=== PATIENT | male | born 1985 | race Hispanic/Latino ===

== ENCOUNTER 2019-07-31 22:19 | Inpatient (IN) | payer OTHER ==
[~2019-07-31] VITALS: Ht 190.5 cm; Wt 130.7 kg
[~2019-07-31 22:19] MED LIST: LIDOCAINE HCL 2% LOCAL INJ 5 ML SDV VIAL INJ ONE; PROPOFOL IV EMULSION 10 MG/ML 20 ML VIAL ONE
[2019-07-31] MEDS ORDERED: DILTIAZEM HCL 5 MG/ML 5 ML VIAL IV STA (22:56)
[2019-07-31] MEDS ORDERED: SODIUM CHLORIDE 0.9% 500ML 500 ML IV ONE (23:00)
[2019-07-31] MEDS ORDERED: ASPIRIN 81 MG CHEW TAB PO ONE (23:00)
[2019-07-31 23:10] LABS: BASOPHILS # (AUTO) 0.1 (0.0-0.1); BASOPHILS % 0.7 % (0.0-1.0); EOSINOPHILS # (AUTO) 0.2 (0.0-0.4); EOSINOPHILS % 1.3 % (0.0-6.0); HEMATOCRIT 49.9 % (38.2-49.6); HEMOGLOBIN 16.7 g/dL (14.0-18.0); LYMPHOCYTES # (AUTO) 4.2 (1.0-3.2); LYMPHOCYTES % 34.9 % (18.0-39.1); MEAN CORPUSCULAR HEMOGLOBIN 30.3 pg (28-32); MEAN CORPUSCULAR HGB CONC 33.5 g/dL (31-35); MEAN CORPUSCULAR VOLUME 90.4 fL (81-99); MONOCYTES # (AUTO) 0.8 (0.2-0.8); MONOCYTES % 6.5 % (4.4-11.3); NEUTROPHILS # (AUTO) 6.7 (2.1-6.9); NEUTROPHILS % 56.3 % (38.7-80.0); PLATELET COUNT 202 x10e3/uL (140-360); RED BLOOD COUNT 5.52 x10e6/uL (4.3-5.7); RED CELL DISTRIBUTION WIDTH 13.6 % (11.7-14.4)
[2019-07-31] MEDS ORDERED: SODIUM CHLORIDE 0.9% 100 ML ONE (23:12)
[2019-07-31] MEDS ORDERED: DILTIAZEM HCL IV 5MG/ML 25 ML VIAL ONE (23:13)
[2019-07-31] MEDS: DILTIAZEM HCL 100 ML IV SCH (23:20)
[2019-07-31 23:24] LABS: INR 1.06; PARTIAL THROMBOPLASTIN TIME 33.2 seconds (23.8-35.5); PROTHROMBIN TIME 14.3 seconds (11.9-14.5)
[2019-07-31] MEDS ORDERED: ONDANSETRON HCL INJ 2MG/ML 2ML 2 MG/ML VIAL IV PRN (23:30)
[2019-07-31 23:35] LABS: ALANINE AMINOTRANSFERASE 61 IU/L (0-55); ALBUMIN 4.3 g/dL (3.5-5.0); ALBUMIN/GLOBULIN RATIO 1.8 (0.8-2.0); ALKALINE PHOSPHATASE 42 IU/L (40-150); ANION GAP 13.4 mmol/L (8-16); BLOOD UREA NITROGEN 9 mg/dL (7-26); BUN/CREATININE RATIO 8 (6-25); CALCIUM 9.2 mg/dL (8.4-10.2); CARBON DIOXIDE 26 mmol/L (22-29); CHLORIDE 103 mmol/L (98-107); CREATINE KINASE 753 IU/L (30-200); CREATININE, SERUM 1.08 mg/dL (0.72-1.25); EST GLOMERULAR FILTRATION RATE > 60 ML/MIN (60-); GLUCOSE 100 mg/dL (74-118); LIPASE 16 U/L (8-78); MAGNESIUM 1.9 MG/DL (1.3-2.1); POTASSIUM 4.4 mmol/L (3.5-5.1); SODIUM 138 mmol/L (136-145)
[2019-07-31] MEDS: ENOXAPARIN SODIUM INJ 100 MG/ML SYR SC SCH (23:49)
[2019-07-31 23:55] LABS: THYROID STIMULATING HORMONE 2.924 uIU/mL (0.350-4.940)
[2019-08-01] VITALS (25 sets, daily range): BP systolic 85–130; BP diastolic 51–98
[2019-08-01 00:06] LABS: AMPHETAMINES SCREEN,URINE POSITIVE (NEGATIVE); BENZODIAZEPINES SCREEN,URINE NEGATIVE (NEGATIVE); PHENCYCLIDINE SCREEN,URINE NEGATIVE (NEGATIVE)
[2019-08-01 00:25] LABS: BILIRUBIN,URINE SMALL (NEGATIVE); CLARITY,URINE CLEAR (CLEAR); COLOR,URINE YELLOW (YELLOW); KETONES,URINE NEGATIVE (NEGATIVE); LEUKOCYTE ESTERASE ,URINE NEGATIVE (NEGATIVE); NITRITE,URINE NEGATIVE (NEGATIVE); PROTEIN,URINE DIPSTICK NEGATIVE (NEGATIVE); URINE UROBILINOGEN 0.2 mg/dL (0.2 - 1)
[2019-08-01 00:26] LABS: BACTERIA,URINE FEW /HPF; EPITHELIAL CELLS,URINE FEW /LPF; MUCUS,URINE MANY (RARE); RBC,URINE 0-5 /HPF (0-5); WBC,URINE (MAN) 0-5 /HPF (0-5)
--- NOTE | 2019-08-01 00:41 | Diagnostic Imaging Report ---
Examination: Single AP view of the chest. COMPARISON: None. INDICATION: Difficulty breathing IMPRESSION: 1. Lines and Tubes: None 2. Lungs are grossly clear. No consolidation or effusion. 3. Mild prominence of the cardiac silhouette, which may be secondary to portable AP projection. Pulmonary vasculature is normal. 4. No acute bony abnormalities. Signed by: Dr. Freddie Tiwari M.D. on 08/01/2019 12:38 AM
--- NOTE | 2019-08-01 01:26 | Diagnostic Imaging Report ---
EXAMINATION: CT of the chest with contrast, PE protocol. TECHNIQUE: Spiral CT images of the chest were performed from the lung apices through the level of the adrenal glands after the IV administration of 100 cc of Isovue 370. Thin section reconstructions were obtained with special concentration on the pulmonary arteries. Coronal and sagittal reformatted images were performed COMPARISON: Portable chest 07/31/2019 CLINICAL HISTORY:Epigastric pain, atrial fibrillation DISCUSSION: Lungs: No filling defects are identified in the main, right or left pulmonary arteries to their segmental levels, to suggest pulmonary embolism. No pulmonary nodules, masses or consolidation. Airways: <The major airways are clear, without endobronchial lesions..> Pleura: <There is no evidence of pleural effusion or pneumothorax.> Heart and mediastinum: Thyroid is unremarkable. Mild cardiomegaly. No pericardial effusion. Aorta is nonaneurysmal. Main pulmonary artery is normal in caliber. Abdomen: The visualized portions of the liver, spleen, pancreas and kidneys and adrenal glands are unremarkable. Bones and soft tissues: <No aggressive lytic lesions. Tissues are grossly unremarkable. IMPRESSION: 1. No CT evidence of pulmonary embolism. 2. Essentially clear lungs. 3. Mild cardiomegaly. Signed by: Dr. Freddie Tiwari M.D. on 08/01/2019 1:23 AM
[2019-08-01 06:06] LABS: CREATINE KINASE MB 3.8 ng/mL (0-5.0)
[2019-08-01] MEDS ORDERED: IOPAMIDOL 370 MG/ML 200 ML INFUS..BTL INJ ONE (06:21)
[2019-08-01] MEDS ORDERED: SODIUM CHLORIDE 0.9% 50ML 50 ML ONE (06:21)
[2019-08-01 06:33] LABS: CHOL/HDL RATIO 4.5 (3.9-4.7)
[2019-08-01] MEDS ORDERED: FAMOTIDINE 20 MG/2 ML VIAL IV SCH (09:00)
[2019-08-01] MEDS ORDERED: METOPROLOL TARTRATE 25 MG TAB PO SCH (09:00)
[2019-08-01] MEDS: ENOXAPARIN SODIUM INJ 100 MG/ML SYR SC SCH ×2 (12:09→23:15)
[2019-08-01] MEDS: METOPROLOL TARTRATE 25 MG TAB PO SCH ×3 (12:14→23:29)
[2019-08-01 15:06] LABS: CREATINE KINASE MB 3.7 ng/mL (0-5.0)
--- NOTE | 2019-08-01 18:42 | Consultation ---
DATE OF CONSULTATION: 08/01/2019 Cardiology Consultation REQUESTING PHYSICIAN: Dung Gonzales MD. REASON FOR CONSULTATION: Atrial fibrillation, rapid ventricular response. HISTORY OF PRESENT ILLNESS: This is a 33-year-old gentleman with history of ADHD and GERD, who presents with complaints of shortness of breath. The patient reports he has been short of breath for the last 2 weeks with dyspnea on normal activity. On questioning, the patient also endorses sensation of palpitations for this period of time. The day before yesterday, he noted he was more short of breath. He subsequently developed epigastric pain yesterday, worse with inspiration. He described the pain as pressure-like, 8 to 9/10 in severity that lasted all day. He therefore was instructed to present to the ER for further evaluation. He was found to be in atrial fibrillation, rapid ventricular response and admitted to the ICU on a diltiazem drip. REVIEW OF SYSTEMS: Negative except as per HPI. PAST MEDICAL HISTORY: 1. ADHD. 2. GERD. PAST SURGICAL HISTORY: Vasectomy. ALLERGIES: NSAIDS. MEDICATIONS: Please see medication list. SOCIAL HISTORY: He smokes [id number]-n-day for the last 12 years. He drinks alcohol occasionally. Denies any illicit drugs. He works as a pipe line inspector. FAMILY HISTORY: He denies any family history of heart disease. PHYSICAL EXAMINATION: VITAL SIGNS: Temperature 97.1 degrees, pulse 96, respiratory rate 16, blood pressure 116/89, and oxygen saturation 99% on room air. GENERAL: Obese gentleman, in no acute distress, well-developed, well-nourished. HEENT: Normocephalic and atraumatic. Pupils are equal. No scleral icterus. NECK: Supple. No thyromegaly or cervical lymphadenopathy. No carotid bruits. LUNGS: Clear to auscultation bilaterally. No wheezes or crackles. CARDIOVASCULAR: Irregularly irregular. Tachycardic. No murmur. Normal S1 and S2,. ABDOMEN: Soft and nontender. EXTREMITIES: No edema. NEUROLOGIC: Nonfocal exam. LABORATORY DATA: WBC 11.93, hemoglobin 16.7, hematocrit 49.9, and platelets 202. Sodium 138, potassium 4.4, chloride 103, CO2 26, BUN 9, and creatinine 1.08. Troponin 0.004. BNP 357. Cholesterol 134, triglycerides 112, LDL 82, and HDL 30. CT chest, no CT evidence of pulmonary embolism. Essentially clear lungs. Mild cardiomegaly. EKG, atrial fibrillation, rapid ventricular response. TELEMETRY: Atrial fibrillation, rate controlled. Echocardiogram, normal LV size with mild concentric LVH. Severe global hypokinesis. Overall LV systolic function is less than 20%. IMPRESSION: 1. Atrial fibrillation, rapid ventricular response. 2. Acute systolic heart failure. 3. Attention deficit hyperactivity disorder. 4. Gastroesophageal reflux disease. RECOMMENDATIONS: Metoprolol has been increased. The patient will need to be converted to metoprolol succinate upon discharge given his acute systolic heart failure. His creatinine is stable. Add ANT inhibitor. Start the patient on diuretics. Although the patient's CHADS-VASc score is only 1, plan SONA cardioversion as an outpatient in an attempt to return patient to normal sinus rhythm. He will need ischemic evaluation to further evaluate his newly diagnosed systolic heart failure, although this may be secondary to tachycardia mediated cardiomyopathy. Monitor the patient on telemetry. Wean diltiazem drip. Thank you for this consult. We will continue to follow. Deandra Hale MD ABS/MODL /[id number]
[2019-08-01] MEDS ORDERED: FUROSEMIDE INJ 10 MG/ML 4 ML VIAL IV SCH (21:00)
[2019-08-01] MEDS ORDERED: SODIUM CHLORIDE 0.9% 100 ML ONE (21:38)
[2019-08-01] MEDS ORDERED: DILTIAZEM HCL IV 5MG/ML 25 ML VIAL ONE (21:39)
[2019-08-01] MEDS: MORPHINE SULFATE 2 MG/ML SYR 1ML IV PRN (22:31)
[2019-08-01] MEDS: DILTIAZEM HCL 100 ML IV SCH ×3 (22:31→23:40)
--- NOTE | 2019-08-01 22:32 | NUR ---
Transfer to room [address] [place] [address] DEVELOPMENT SCIENTIST is with pt. Report to accepting nurse Marissa WARE. No complications noted.
[2019-08-01] MEDS ORDERED: ACETAMINOPHEN 325 MG TAB PO PRN (22:45)
[2019-08-02] VITALS (11 sets, daily range): BP systolic 98–119; BP diastolic 61–86
[2019-08-02 05:25] LABS: BASOPHILS # (AUTO) 0.1 (0.0-0.1); BASOPHILS % 0.8 % (0.0-1.0); EOSINOPHILS # (AUTO) 0.3 (0.0-0.4); EOSINOPHILS % 2.8 % (0.0-6.0); HEMATOCRIT 50.9 % (38.2-49.6); HEMOGLOBIN 16.7 g/dL (14.0-18.0); LYMPHOCYTES # (AUTO) 3.7 (1.0-3.2); LYMPHOCYTES % 35.7 % (18.0-39.1); MEAN CORPUSCULAR HEMOGLOBIN 29.9 pg (28-32); MEAN CORPUSCULAR HGB CONC 32.8 g/dL (31-35); MEAN CORPUSCULAR VOLUME 91.2 fL (81-99); MONOCYTES # (AUTO) 0.7 (0.2-0.8); MONOCYTES % 6.7 % (4.4-11.3); NEUTROPHILS # (AUTO) 5.6 (2.1-6.9); NEUTROPHILS % 53.8 % (38.7-80.0); PLATELET COUNT 200 x10e3/uL (140-360); RED BLOOD COUNT 5.58 x10e6/uL (4.3-5.7); RED CELL DISTRIBUTION WIDTH 13.4 % (11.7-14.4)
[2019-08-02] MEDS: DILTIAZEM HCL 100 ML IV SCH (05:29)
[2019-08-02 05:45] LABS: ANION GAP 13.4 mmol/L (8-16); BLOOD UREA NITROGEN 13 mg/dL (7-26); BUN/CREATININE RATIO 11 (6-25); CALCIUM 9.7 mg/dL (8.4-10.2); CARBON DIOXIDE 29 mmol/L (22-29); CHLORIDE 99 mmol/L (98-107); CREATININE, SERUM 1.15 mg/dL (0.72-1.25); EST GLOMERULAR FILTRATION RATE > 60 ML/MIN (60-); GLUCOSE 89 mg/dL (74-118); MAGNESIUM 1.9 MG/DL (1.3-2.1); POTASSIUM 4.4 mmol/L (3.5-5.1); SODIUM 137 mmol/L (136-145)
[2019-08-02] MEDS: FUROSEMIDE INJ 10 MG/ML 4 ML VIAL IV SCH ×2 (05:52→17:27)
[2019-08-02] MEDS: METOPROLOL TARTRATE 25 MG TAB PO SCH ×3 (06:11→18:29)
[2019-08-02] MEDS: FAMOTIDINE 20 MG TAB PO SCH ×2 (08:48→17:11)
[2019-08-02] MEDS ORDERED: DIGOXIN INJ 0.25 MG/ML 2 ML AMP IV ONE ×3 (09:40→19:00)
--- NOTE | 2019-08-02 10:40 | NUR ---
CARDIZEM DRIP STOPPED PER DR. FARA WEI
[2019-08-02] MEDS: ENOXAPARIN SODIUM INJ 100 MG/ML SYR SC SCH (12:14)
--- NOTE | 2019-08-02 12:23 | NUR ---
Called Dr. Deandra Lozada to notify of patient's heart rate ranging from 109-150' and jumping to 160 received orders to give one more dose of digoxin 250mcg, IVP.
[2019-08-02] MEDS ORDERED: METOPROLOL TARTRATE INJ 1 MG/ML VIAL IV PRN (15:15)
--- NOTE | 2019-08-02 17:45 | NUR ---
Cori Gonsales, rounding to see patient, made aware of patient's heart rate fluctuating from 119-160, informed Cori Hale had been notified and MD, had com to see patient, and prescribed Lopressor IV 5mg, PRN, I also informed Cori I had given patient's Lopressor IVP at 15:55 and heart rate was persistent between 130'-140. Cori Gonsales contacted Dr. Ethel Hale, per Dr. Hale will do SONA in the am.
[2019-08-02] MEDS ORDERED: MELATONIN 5 MG TABLET PO PRN (18:00)
[2019-08-02] MEDS ORDERED: LORAZEPAM INJ 2 MG/ML VIAL IV PRN (18:00)
--- NOTE | 2019-08-02 18:45 | NUR ---
Dr. Hale called back made aware of patient's heart rate range form 130's 170' received orders to give patient, digoxin 500mcg IVP x1 dose now and to give Amiodarone 200mg PO twice daily and give first dose now.
[2019-08-02] MEDS: AMIODARONE HCL 200 MG TAB PO SCH (19:42)
[2019-08-03] VITALS (16 sets, daily range): BP systolic 78–118; BP diastolic 44–83
[2019-08-03] MEDS: MORPHINE SULFATE 2 MG/ML SYR 1ML IV PRN (00:01)
[2019-08-03] MEDS: METOPROLOL TARTRATE 25 MG TAB PO SCH ×4 (00:02→19:09)
[2019-08-03] MEDS: ENOXAPARIN SODIUM INJ 100 MG/ML SYR SC SCH ×3 (00:02→23:30)
--- NOTE | 2019-08-03 01:19 | Progress Note ---
DATE: 08/02/2019 Cardiology Progress Note SUBJECTIVE: The patient denies chest pain, reported shortness of breath has improved. OBJECTIVE: VITAL SIGNS: Temperature 98.5 degrees, pulse 140, respiratory rate 20, blood pressure 109/63, and oxygen saturation 98% on room air. GENERAL: Obese woman, in no acute distress. Awake and alert. LUNGS: Clear to auscultation bilaterally. No wheezes or crackles. CARDIOVASCULAR: Irregularly irregular, tachycardic. No murmur. Normal S1, S2. ABDOMEN: Soft, nontender. EXTREMITIES: No edema. CARDIAC MEDICATIONS: Metoprolol 25 mg p.o. q.6 hours, furosemide 40 mg IV q.12 hours, Enoxaparin 100 mg subcu q.12 hours. LABORATORY DATA: WBC 10.41, hemoglobin 16.7, hematocrit 50.9, platelets 200. Sodium 137, potassium 4.4, chloride 99, CO2 of 29, BUN 13, creatinine 1.15. Troponin 0.002. BNP 210. TELEMETRY: Atrial fibrillation with rapid ventricular response. IMPRESSION: 1. Atrial fibrillation with rapid ventricular response. 2. Acute systolic heart failure. 3. Attention deficit hyperactivity disorder. 4. Gastroesophageal reflux disease. RECOMMENDATIONS: Despite increase of metoprolol in addition of digoxin, the patient remains poorly rate controlled off Cardizem drip. PLAN: For SONA cardioversion in the morning with anesthesia given difficulty with rate control. Metoprolol cannot be further titrated due to low blood pressure. We will add amiodarone. If renal function remains stable, add ANT inhibitor. Continue diuretics. The patient remains volume overloaded. Once the patient returns to normal sinus rhythm, he will need ischemic evaluation for further evaluation of his newly diagnosed systolic heart failure, although suspect this may be secondary to tachycardia mediated cardiomyopathy. Discussed the importance of evaluation and treatment for obstructive sleep apnea with the patient given his atrial fibrillation. Discussed the importance of weight loss as well. Monitor the patient on telemetry. Thank you for this consult. We will continue to follow. Deandra Hale MD ABS/MODL /[id number]
[2019-08-03 03:27] LABS: BASOPHILS # (AUTO) 0.1 (0.0-0.1); BASOPHILS % 0.6 % (0.0-1.0); EOSINOPHILS # (AUTO) 0.3 (0.0-0.4); EOSINOPHILS % 1.8 % (0.0-6.0); HEMATOCRIT 53.5 % (38.2-49.6); HEMOGLOBIN 18.6 g/dL (14.0-18.0); LYMPHOCYTES # (AUTO) 2.8 (1.0-3.2); LYMPHOCYTES % 19.9 % (18.0-39.1); MEAN CORPUSCULAR HEMOGLOBIN 30.4 pg (28-32); MEAN CORPUSCULAR HGB CONC 34.8 g/dL (31-35); MONOCYTES # (AUTO) 1.1 (0.2-0.8); MONOCYTES % 7.4 % (4.4-11.3); PLATELET COUNT 194 x10e3/uL (140-360); RED BLOOD COUNT 6.11 x10e6/uL (4.3-5.7); RED CELL DISTRIBUTION WIDTH 13.2 % (11.7-14.4)
[2019-08-03 03:33] LABS: MEAN CORPUSCULAR VOLUME 87.6 fL (81-99)
[2019-08-03 03:38] LABS: ANION GAP 15.2 mmol/L (8-16); BLOOD UREA NITROGEN 14 mg/dL (7-26); BUN/CREATININE RATIO 12 (6-25); CALCIUM 9.9 mg/dL (8.4-10.2); CARBON DIOXIDE 29 mmol/L (22-29); CHLORIDE 96 mmol/L (98-107); CREATININE, SERUM 1.19 mg/dL (0.72-1.25); EST GLOMERULAR FILTRATION RATE > 60 ML/MIN (60-); GLUCOSE 92 mg/dL (74-118); POTASSIUM 4.2 mmol/L (3.5-5.1); SODIUM 136 mmol/L (136-145)
[2019-08-03 03:54] LABS: B-TYPE NATRIURETIC PEPTIDE2 426.1 pg/mL (0-100)
[2019-08-03] MEDS ORDERED: LOPRESSOR25 MG PO (06:20)
[2019-08-03] MEDS ORDERED: AMIODARONE HCL200 MG PO (06:20)
[2019-08-03] MEDS: FUROSEMIDE INJ 10 MG/ML 4 ML VIAL IV SCH ×2 (06:46→18:09)
[2019-08-03] MEDS: FAMOTIDINE 20 MG TAB PO SCH ×2 (07:30→18:09)
[2019-08-03] MEDS: AMIODARONE HCL 200 MG TAB PO SCH ×2 (09:00→18:11)
[2019-08-03] MEDS ORDERED: BENZOCAINE 20% SPR 60 ML CAN ONE (10:20)
[2019-08-03] MEDS ORDERED: SODIUM CHLORIDE 0.9% 1000ML 1,000 ML ONE (10:20)
--- NOTE | 2019-08-03 11:40 | NUR ---
Procedure note: 1038-Patient brought to pharmacy laboratory technician. In room for procedure. 1040-Anesthesia at bedside interviewing and assessing patient. 1051-Physician arrives and time out performed with all participating staff. 1059-SONA probe inserted via direct visualization with laryngoscope and assistance from anesthesia. Patient tolerated well. 1110- Bubble study done. 1114-SONA probe removed. Negative study, ok to proceed with syncronized cardioversion. 1117- Syncronized shock delivered at 100j, converted to SR, stat EKG order put in per DR Hale and EKG called. EKG done and will transfer patient to Phase 1 recovery at the request of anesthesia d/t MACIEJ. Bedside report given to DRILL PRESS OPERATOR HELPER along with anesthesia.
--- NOTE | 2019-08-03 13:33 | Progress Note ---
DATE: 08/03/2019 Cardiology Progress Note SUBJECTIVE: The patient denies chest pain. He continues to complain of shortness of breath. OBJECTIVE: VITAL SIGNS: Temperature 98.4 degrees, pulse 101, respiratory rate 20, and blood pressure 104/72, and oxygen saturation 96% on room air. GENERAL: Obese woman, no acute distress. Awake and alert. LUNGS: Clear to auscultation bilaterally. No wheezes or crackles. CARDIOVASCULAR: Irregularly irregular, tachycardiac. No murmur. Normal S1, S2. ABDOMEN: Soft, nontender. EXTREMITIES: No edema. CARDIAC MEDICATIONS: Furosemide 40 mg IV q.12 hours, enoxaparin 100 mg subcu q.12 hours, amiodarone 200 mg p.o. b.i.d., metoprolol tartrate 5 mg IV q.6 hours p.r.n., metoprolol tartrate 25 mg p.o. q.6 hours. LABORATORY DATA: WBCs 14.24, hemoglobin 18.6, hematocrit 53.5, and platelets 194. Sodium 136, potassium 4.2, chloride 96, CO2 of 29, BUN 14, creatinine 1.19. BNP 426. TELEMETRY: Atrial fibrillation with rapid ventricular response. IMPRESSION: 1. Atrial fibrillation with rapid ventricular response. 2. Acute systolic heart failure. 3. Attention deficit hyperactivity disorder. 4. Gastroesophageal reflux disease. RECOMMENDATIONS: Despite loading dose of digoxin, addition of amiodarone, the patient remains in atrial fibrillation with rapid ventricular response. Plan for SONA cardioversion this morning with anesthesia. Further AV rudy blocking agents cannot be added due to hypotension. Continue current cardiac medications at this time. If renal function remains stable, add ANT inhibitor as blood pressure permits. Increase diuretics as the patient remains volume overloaded. Once the patient returns normal sinus rhythm, he will need ischemic evaluation for further evaluation of his newly diagnosed systolic heart failure, although suspect this may be secondary to tachycardia-mediated cardiomyopathy, this can be done as an outpatient. Discussed the importance for evaluation treatment of obstructive sleep apnea with the patient given his atrial fibrillation. Discussed weight loss in the management of atrial fibrillation. Monitor the patient on telemetry while admitted. Thank you for this consult. We will continue to follow. Deandra Hale MD ABS/MODL /[id number]
--- NOTE | 2019-08-03 17:39 | Operative Report ---
DATE OF PROCEDURE: 08/03/2019 SURGEON: Deandra Hale MD PROCEDURE: SONA DC cardioversion. INDICATION: Atrial fibrillation. PROCEDURE IN DETAIL: The patient was brought to the cardiac catheterization laboratory in a fasting state after written and informed consent was obtained. Pads were applied in the anterior and posterior approach. Sedation was performed by Anesthesiology. SONA was performed without evidence of clot in the left atrium or left atrial appendage. The patient was shocked once with biphasic 100 joules shock with successful shinto of normal sinus rhythm. There were no immediate complications. Postprocedure EKG was performed, which confirmed normal sinus rhythm. CONCLUSION: Successful DC cardioversion with return to normal sinus rhythm. Deandra Hale MD ABS/MODL /[id number]
[2019-08-03] MEDS ORDERED: MIDAZOLAM HCL 2 MG/2 ML VIAL ONE (19:39)
[2019-08-04] MEDS: FUROSEMIDE INJ 10 MG/ML 4 ML VIAL IV SCH ×2 (06:00→17:00)
[2019-08-04] MEDS: METOPROLOL TARTRATE 25 MG TAB PO SCH ×2 (06:00)
[2019-08-04] MEDS ORDERED: FAMOTIDINE20 MG PO (06:13)
[2019-08-04] MEDS ORDERED: FUROSEMIDE40 MG PO (06:17)
[2019-08-04 07:10] VITALS: BP 98/56
[2019-08-04 07:30] VITALS: BP 98/56
[2019-08-04] MEDS: AMIODARONE HCL 200 MG TAB PO SCH ×2 (08:23→16:53)
[2019-08-04] MEDS: FAMOTIDINE 20 MG TAB PO SCH ×2 (08:23→16:53)
[2019-08-04 10:57] LABS: ANION GAP 12.4 mmol/L (8-16); BLOOD UREA NITROGEN 14 mg/dL (7-26); BUN/CREATININE RATIO 12 (6-25); CALCIUM 10.1 mg/dL (8.4-10.2); CARBON DIOXIDE 35 mmol/L (22-29); CHLORIDE 93 mmol/L (98-107); CREATININE, SERUM 1.13 mg/dL (0.72-1.25); EST GLOMERULAR FILTRATION RATE > 60 ML/MIN (60-); GLUCOSE 99 mg/dL (74-118); POTASSIUM 4.4 mmol/L (3.5-5.1); SODIUM 136 mmol/L (136-145)
[2019-08-04] MEDS: ENOXAPARIN SODIUM INJ 100 MG/ML SYR SC SCH (11:51)
[2019-08-04 12:47] VITALS: BP 99/71
[2019-08-04 15:56] VITALS: BP 110/57
[2019-08-04 15:57] VITALS: BP_SYST 116; BP_DIAS 68; BP_DIAS 69
[2019-08-04] MEDS ORDERED: METOPROLOL TARTRATE 25 MG TAB PO SCH (17:00)
[2019-08-04] MEDS ORDERED: METOPROLOL SUCC25 MG PO (18:19)
[2019-08-04] MEDS ORDERED: AMIODARONE HCL200 MG PO (18:20)
[2019-08-04] MEDS ORDERED: APIXABAN PO (18:21)
[2019-08-04 19:20] VITALS: BP 113/76
--- NOTE | 2019-08-04 19:50 | NUR ---
Provided D/C instructions to patient and his . Patient verbalized and understand. No C/O pain. V/S WNL.Patient D/C from unit @195 walking with his family.
--- NOTE | 2019-08-04 21:00 | Progress Note ---
DATE: 08/04/2019 Cardiology Progress Note SUBJECTIVE: The patient denies chest pain or shortness of breath. OBJECTIVE: VITAL SIGNS: Temperature 98 degrees, pulse 67, respiratory rate 20, blood pressure 116/68, and oxygen saturation 100% on room air. GENERAL: Obese gentleman, no acute distress. Awake and alert. LUNGS: Clear to auscultation bilaterally. No wheezes or crackles. CARDIOVASCULAR: Normal rate, regular rhythm. No murmur. Normal S1, S2. ABDOMEN: Soft, nontender. EXTREMITIES: No edema. CARDIAC MEDICATIONS: Furosemide 40 mg IV q.12 hours, metoprolol 125 mg p.o. b.i.d., amiodarone 200 mg p.o. b.i.d., Lovenox 100 mg subcu q.12 hours. LABORATORY DATA: Sodium 136, potassium 4.4, chloride 93, CO2 of 35, BUN 14, creatinine 1.13. TELEMETRY: Normal sinus rhythm. IMPRESSION: 1. Atrial fibrillation with rapid ventricular response, status post SONA cardioversion with 100 joule biphasic shock. 2. Acute systolic heart failure, left ventricular ejection fraction less than 20%. 3. Attention deficit hyperactivity disorder. 4. Gastroesophageal reflux disease. RECOMMENDATIONS: The patient has remained in normal sinus rhythm after cardioversion. Continue amiodarone. Transition metoprolol to metoprolol succinate for his acute systolic heart failure. Change to Eliquis for CVA prophylaxis. Continue Lasix. Discussed daily weights, fluid and sodium restriction. The patient will need to follow up in the office next week. If blood pressure is stable, we will start the patient on lisinopril. The patient will need ischemic evaluation with a nuclear stress test as an outpatient, although suspect his systolic heart failure is secondary to tachycardia-mediated cardiomyopathy. LifeVest has been ordered. Emphasize treatment of obstructive sleep apnea and weight loss to prevent recurrent atrial fibrillation. Thank you for this consult. We will continue to follow. Deandra Hale MD ABS/MODL /[id number]
--- NOTE | 2019-08-06 02:22 | Discharge Summary ---
ADMISSION DIAGNOSES: Atrial fibrillation with rapid ventricular rate, acute systolic congestive heart failure, attention deficit hyperactivity disorder, hypogonadism and gastroesophageal reflux disease. DISCHARGE DIAGNOSES: Atrial fibrillation with rapid ventricular rate, acute systolic congestive heart failure, attention deficit hyperactivity disorder, hypogonadism and gastroesophageal reflux disease. HISTORY: ADHD, GERD, obesity, low testosterone. SURGICAL HISTORY: Vasectomy and right buttock cyst removal. FAMILY HISTORY: The patient's mom had diabetes and cancer. Patient's aunt had a heart attack. SOCIAL HISTORY: The patient drinks alcohol occasionally and smokes about 1.5 pack per day. HOSPITAL COURSE: A 33-year-old male presents with shortness of breath x2 weeks, which was worse on the day prior to admission. He had dyspnea despite minimal exertion. Then, he developed epigastric pain, which was worse with inspiration. In ER, he was diagnosed with atrial fibrillation with RVR, sent to ICU on a diltiazem drip. Cardiology was consulted. Drip was removed and patient was placed on amiodarone and metoprolol. As his atrial fibrillation was still not controlled, a SONA with cardioversion was completed, which successfully converted the patient back to sinus rhythm. Echo showed an EF of 30%. The patient was instructed that he may need a LifeVest. Cardiology set up the pathway to get a LifeVest outpatient. The patient understands discharge instructions and agrees to plan. Vital signs stable, patient afebrile. Dictated by Cori Gonsales NP MD KINZA Mckoy/MODL /[id number]
== END 2019-08-04 19:51 | disposition home or self-care (01) | DRG 308 ==
LOC: ER 22:19 → ERHOLD 23:51 → ICU 23:54 → IMCU 08-01 22:26
PROVIDERS: ADMIT Internal Medicine; ATTEND Internal Medicine
PROC: 5A2204Z Restoration of Cardiac Rhythm, Single (ICD-10-PCS; principal; 2019-08-03)
DX: I48.91 Unspecified atrial fibrillation (principal); I50.21 Acute systolic (congestive) heart failure; E29.1 Testicular hypofunction; K21.9 Gastro-esophageal reflux disease without esophagitis; F98.8 Other specified behavioral and emotional disorders with onset usually occurring in childhood and adolescence; F17.210 Nicotine dependence, cigarettes, uncomplicated; F90.1 Attention-deficit hyperactivity disorder, predominantly hyperactive type; I42.8 Other cardiomyopathies; E66.9 Obesity, unspecified; Z68.36 Body mass index [BMI] 36.0-36.9, adult
CPT/HCPCS: 36415; 71045; 71260; 80048; 80053; 80061; 80307; 81001; 82550; 82553; 83036; 83690; 83735; 83880; 84100; 84443; 84484; 85025; 85379; 85610; 85730; 87086; 93005; 93306; 93307; 93312; 93325; 93970; 99284; J1160; J1650; J1940; J2001; J2250; J2270; J2405; J7030; J7040; J7050; Q9967

== ENCOUNTER → 2019-09-11 | Day surgery (SDC) | payer OTHER ==
[2019-09-07 15:00] LABS: BASOPHILS # (AUTO) 0.1 (0.0-0.1); BASOPHILS % 0.7 % (0.0-1.0); EOSINOPHILS # (AUTO) 0.2 (0.0-0.4); HEMOGLOBIN 16.1 g/dL (14.0-18.0); LYMPHOCYTES # (AUTO) 2.7 (1.0-3.2); LYMPHOCYTES % 29.5 % (18.0-39.1); MEAN CORPUSCULAR HGB CONC 34.3 g/dL (31-35); MEAN CORPUSCULAR VOLUME 87.7 fL (81-99); MONOCYTES # (AUTO) 0.7 (0.2-0.8); MONOCYTES % 7.1 % (4.4-11.3); NEUTROPHILS # (AUTO) 5.5 (2.1-6.9); NEUTROPHILS % 60.4 % (38.7-80.0); PLATELET COUNT 183 x10e3/uL (140-360); RED BLOOD COUNT 5.36 x10e6/uL (4.3-5.7); RED CELL DISTRIBUTION WIDTH 12.4 % (11.7-14.4)
[2019-09-07 15:04] LABS: INR 0.91; PROTHROMBIN TIME 12.7 seconds (11.9-14.5)
[2019-09-07 15:12] LABS: ALANINE AMINOTRANSFERASE 49 IU/L (0-55); ALBUMIN 4.5 g/dL (3.5-5.0); ALBUMIN/GLOBULIN RATIO 1.6 (0.8-2.0); ALKALINE PHOSPHATASE 52 IU/L (40-150); ANION GAP 13.4 mmol/L (8-16); BLOOD UREA NITROGEN 19 mg/dL (7-26); BUN/CREATININE RATIO 17 (6-25); CALCIUM 10.3 mg/dL (8.4-10.2); CARBON DIOXIDE 28 mmol/L (22-29); CHLORIDE 101 mmol/L (98-107); CREATININE, SERUM 1.15 mg/dL (0.72-1.25); EST GLOMERULAR FILTRATION RATE > 60 ML/MIN (60-); GLUCOSE 91 mg/dL (74-118); POTASSIUM 4.4 mmol/L (3.5-5.1); SODIUM 138 mmol/L (136-145)
[~2019-09-11] VITALS: Ht 190.5 cm; Wt 127.0 kg
[2019-09-11] VITALS (10 sets, daily range): BP systolic 108–127; BP diastolic 66–82
[~2019-09-11] MED LIST changes: +AMIODARONE HCL200 MG PO; +APIXABAN PO; +ELIQUIS5 MG PO; +ENTRESTO 24 MG1 EACH PO; +FAMOTIDINE20 MG PO; +FENTANYL CITRATE/PF 100MCG/2 ML INJ ONE; +FUROSEMIDE20 MG PO; +FUROSEMIDE40 MG PO; +HEPARIN SOD (PORCINE) 1000 UNIT/ML 30ML ONE; +HEPARIN SOD/SOD CHLORIDE 2,000 ML ONE; +IOPAMIDOL 370 MG/ML 200 ML INFUS..BTL INJ ONE; +LIDOCAINE HCL 2% LOCAL 20 ML VIAL ONE; -LIDOCAINE HCL 2% LOCAL INJ 5 ML SDV VIAL INJ ONE; +LOPRESSOR25 MG PO; +METOPROLOL SUCC25 MG PO; +MIDAZOLAM HCL 2 MG/2 ML VIAL ONE; +NITROGLYCERIN/D5W 200 MCG/ML 250 ML ONE; -PROPOFOL IV EMULSION 10 MG/ML 20 ML VIAL ONE; +SODIUM CHLORIDE 0.9% 1000ML 1,000 ML ONE; +VERAPAMIL HCL 2.5 MG/ML 2 ML VIAL ONE
--- OUTSIDE RECORDS SUMMARY | 2019-09-11 08:02 | XMS REPORT ---
[facility] Address Unknown Phone Unavailable Care Team Providers Care [facility] Director Name Role Phone KRISTINE DECKER Unavailable Unavailable Problems This patient has no known problems. Allergies, Adverse Reactions, Alerts This patient has no known allergies or adverse reactions. Medications This patient has no known medications. Results Test Description Test Time Test Comments Text Results Atomic Results Result Comments CT CHEST W 2019-08-01 01:18:00 [place] [address] Patient Name: PILAR GUILLERMO MR #: [id number] : 1985 Age/Sex: 33/M Req #: [id number] Adm Physician: KRISTINE DECKER MD Ordered by: AUGUSTUS GUILLERMO MD Report #: [id number] Location: ICU Room/Bed: ICU [facility] Procedure: [id number] CT/CT CHEST W Exam Date: Exam Time: REPORT STATUS: Signed EXAMINATION: CT of the chest with contrast, PE protocol. TECHNIQUE: Spira l CT images of the chest were performed from the lung apices through the level of the adrenal glands after the IV administration of 100 cc of Isovue 370. Thin section reconstructions were obtained with special concentration on the pulmonary arteries. Coronal and sagittal reformatted images were performed COMPARISON: Portable chest 07/31/2019 CLINICAL HISTORY:Epigastric pain, atrial fibrillation DISCUSSION: Lungs: No filling defects are identified in the main, right or left pulmonary arteries to their segmental levels, to suggest pulmonary embolism. No pulmonary nodules, masses or consolidation. Airways: <The major airways are clear, without endobronchial lesions..> Pleura: <There is no evidence of pleural effusion or pneumothorax.> Heart and mediastinum: Thyroid is unremarkable. Mild cardiomegaly. No pericardial effusion. Aorta is nonaneurysmal. Main pulmonary artery is normal in caliber. Abdomen: The visualized portions of the liver, spleen, pancreas and kidneys and adrenal glands are unremarkable. Bones and soft tissues: <No aggressive lytic lesions. Tissues are grossly unremarkable. IMPRESSION: 1. No CT evidence of pulmonary embolism. 2. Essentially clear lungs. 3. Mild cardiomegaly. Signed by: Dr. Cherry Tiwari M.D. on 08/01/2019 1:23 AM Dictated By: CHERRY TIWARI MD 2 Transcribed By: MINNA on 08/01/19122 COPY TO: AUGUSTUS GUILLERMO MD CHEST SINGLE (PORTABLE) 2019-08-01 00:37:00 [place] [address] Patient Name: PILAR GUILLERMO MR #: [id number] : 1985 Age/Sex: 33/M Req #: [id number] Adm Physician: KRISTINE DECKER MD Ordered by: AUGUSTUS GUILLERMO MD Report #: [id number] Location: ICU Room/Bed: ICU [facility] Procedure: [id number] DX/CHEST SINGLE (PORTABLE) Exam Date: 07/31/19 Exam Time: 2340 REPORT STATUS: Signed Examination: Single AP view of the chest. COMPARI SON: None. INDICATION: Difficulty breathing IMPRESSION: 1. Lines and Tubes: None 2. Lungs are grossly clear. No consolidation or effusion. 3. Mild prominence of the cardiac silhouette, which may be secondary to portable AP projection. Pulmonary vasculature is normal. 4. No acute bony abnormalities. Signed by: Dr. Cherry Tiwari M.D. on 08/01/2019 12:38 AM Dictated By: CHERRY TIWARI MD Transcribed By: MINNA on 08/01/1937 COPY TO: AUGUSTUS GUILLERMO MD
--- NOTE | 2019-09-11 10:50 | NUR ---
bedside report received from Oswald Kim RN. Alert oriented and appropriate, PERRLA, respirations even and unlabored to room air. Pulses x4 extremities equal and strong. TR band to right radial. + neurovascular function. No gross bleeding at this time. Cap fill brisk < 3 sec. Skin warm and dry integrity appears intact. IV 20g to left hand. presents healthy w/o s/s of infiltration or complaint. Abdomen soft and supple. pt offered toileting, urinal provided. Personal affects with patient. Family at bedside. Pt and family verbalizes understanding of POC for TR band removal. On bedside monitor HR 48-52. Currently w/o complaint of pain or need. -cgf
--- NOTE | 2019-09-11 11:05 | NUR ---
pt urinated 300ml of clear yellow urine.
--- NOTE | 2019-09-11 11:12 | NUR ---
DC education initiated. Review of Radial care, medications, and follow up. Teach and read back utilized.
--- NOTE | 2019-09-11 12:00 | NUR ---
TR band successfully removed w/o gross incident. + neurovascular function present. Wrist "guard" applied per pt request. Reinforced guard to be removed within the first 24 hours. Family / patient verbalized understanding. Skin care performed.
--- NOTE | 2019-09-11 12:14 | NUR ---
Pt meets DC criteria. Right radial assessed for s/s of complication and presence of hematoma. Overall skin warm, dry, no discolor, and pulses present. IV removed from left hand. Distal tip appears intact. VS WNL. Pt denies pain, sob, or need at this time. Life vest applied appropriately. Family at bedside. Review of discharge paperwork and follow up instructions. verbalized understanding. Pt to wheelchair and transported to front of hospital. Transferred to private vehicle under own strength w/o incident with DC paperwork in hand. - cgf
--- NOTE | 2019-09-11 16:21 | Operative Report ---
DATE OF PROCEDURE: SURGEON: Dimas Garcia DO PROCEDURES PERFORMED: 1. Conscious sedation, 30 minutes. 2. Selective coronary angiography x2. 3. Left heart catheterization. PREPROCEDURE DIAGNOSIS: Congestive heart failure. POSTPROCEDURE DIAGNOSES: 1. Congestive heart failure. 2. Nonischemic cardiomyopathy. ESTIMATED BLOOD LOSS: Less than 10 mL. SPECIMENS REMOVED: None. PROCEDURE IN DETAIL: After informed consent was obtained, the patient was brought to the cardiac catheterization laboratory in a fasting and nonsedated state. Bilateral groins were prepped and draped in usual sterile fashion. His right wrist was prepped and draped in the usual sterile fashion. A 2% of lidocaine was infiltrated over the right wrist for local anesthesia. Using micropuncture needle, the right radial artery was accessed via modified Seldinger technique and a 5/6 slender sheath was placed. Next, diagnostic coronary angiography and left heart catheterization was performed using a TIG catheter and a JL 3.5 catheter. Diagnostic imaging revealed no significant coronary artery disease. Everything was removed over the wire. Hemostasis was achieved via TR band. The patient tolerated the procedure well with no immediate complications, and transferred back to his room in stable condition. PROCEDURAL FINDINGS: 1. Left main coronary artery is patent. 2. Left anterior descending coronary artery is patent proximally and tapers down prior to reaching the left ventricular apex. There is no significant coronary artery disease present. 3. Left circumflex coronary artery is large and dominant. It provides three obtuse marginal vessels and a left posterior descending coronary artery, which reaches the LV apex. There is no significant coronary artery disease present in his coronary system. 4. The right coronary artery is a small to medium caliber vessel, it was nondominant. There is no significant disease present. 5. Left ventricular end-diastolic pressure is 13 mmHg. No aortic valve gradient present upon pullback. IMPRESSION: Nonischemic cardiomyopathy. RECOMMENDATIONS: Continue medical management. Dimas Garcia DO BM/MODL /[id number]
== END | disposition home or self-care (01) ==
LOC: CATH LAB 07:55
PROVIDERS: ATTEND Internal Medicine Cardiovascular Disease
DX: I50.22 Chronic systolic (congestive) heart failure (principal); R07.2 Precordial pain; Z01.812 Encounter for preprocedural laboratory examination; I11.0 Hypertensive heart disease with heart failure; I48.0 Paroxysmal atrial fibrillation; E66.9 Obesity, unspecified; Z68.35 Body mass index [BMI] 35.0-35.9, adult
CPT/HCPCS: 36415; 80053; 85025; 85610; 93458; C1887; J1644; J2001; J2250; J3010; J7030; Q9967; 99152

== ENCOUNTER 2021-12-28 14:03 | Inpatient (IN) | payer OTHER ==
[~2021-12-28] VITALS: Ht 190.5 cm; Wt 127.0 kg
[~2021-12-28 14:03] MED LIST changes: -FENTANYL CITRATE/PF 100MCG/2 ML INJ ONE; -HEPARIN SOD (PORCINE) 1000 UNIT/ML 30ML ONE; -HEPARIN SOD/SOD CHLORIDE 2,000 ML ONE; -IOPAMIDOL 370 MG/ML 200 ML INFUS..BTL INJ ONE; -LIDOCAINE HCL 2% LOCAL 20 ML VIAL ONE; -MIDAZOLAM HCL 2 MG/2 ML VIAL ONE; -NITROGLYCERIN/D5W 200 MCG/ML 250 ML ONE; -SODIUM CHLORIDE 0.9% 1000ML 1,000 ML ONE; -VERAPAMIL HCL 2.5 MG/ML 2 ML VIAL ONE
[2021-12-28] MEDS ORDERED: AMIODARONE 900MG 900 MG in Premix Bag 1 BAG IV SCH (14:30)
[2021-12-28] MEDS ORDERED: Vancomycin IV 1 GM in SODIUM CHLORIDE 0.9% 250ML 250 ML IV ONE (14:30)
[2021-12-28] MEDS ORDERED: AMIODARONE HCL 360MG 200 ML IV SCH ×2 (14:30→18:00)
[2021-12-28] MEDS ORDERED: AMIODARONE HCL 150MG 100 ML IV SCH (14:30)
[2021-12-28 14:35] LABS: BASOPHILS # (AUTO) 0.1 (0.0-0.1); BASOPHILS % 0.7 % (0.0-1.0); EOSINOPHILS # (AUTO) 0.2 (0.0-0.4); HEMATOCRIT 47.3 % (38.2-49.6); HEMOGLOBIN 15.6 g/dL (14.0-18.0); LYMPHOCYTES # (AUTO) 2.5 (1.0-3.2); LYMPHOCYTES % 27.8 % (18.0-39.1); MEAN CORPUSCULAR HEMOGLOBIN 30.5 pg (28-32); MEAN CORPUSCULAR VOLUME 92.6 fL (81-99); MONOCYTES # (AUTO) 0.5 (0.2-0.8); MONOCYTES % 5.5 % (4.4-11.3); NEUTROPHILS # (AUTO) 5.8 (2.1-6.9); NEUTROPHILS % 63.9 % (38.7-80.0); PLATELET COUNT 216 x10e3/uL (140-360); RED BLOOD COUNT 5.11 x10e6/uL (4.3-5.7); RED CELL DISTRIBUTION WIDTH 12.6 % (11.7-14.4)
[2021-12-28] MEDS ORDERED: SODIUM CHLORIDE 0.9% 500ML 500 ML ONE (14:42)
[2021-12-28] MEDS ORDERED: AMIODARONE HCL 150MG 100 ML ONE (14:44)
[2021-12-28 14:48] LABS: INR 0.88; PROTHROMBIN TIME 12.6 seconds (11.9-14.5)
[2021-12-28 14:49] LABS: PARTIAL THROMBOPLASTIN TIME 32.2 seconds (23.8-35.5)
[2021-12-28 14:58] LABS: ALBUMIN 4.1 g/dL (3.5-5.0); ALBUMIN/GLOBULIN RATIO 1.5 (0.8-2.0); ANION GAP 15.6 mmol/L (8-16); CALCIUM 9.1 mg/dL (8.4-10.2); CREATININE, SERUM 0.88 mg/dL (0.72-1.25); POTASSIUM 3.6 mmol/L (3.5-5.1)
[2021-12-28 15:00] LABS: MAGNESIUM 1.7 MG/DL (1.3-2.1)
[2021-12-28] MEDS ORDERED: AMIODARONE HCL 150 MG in DEXTROSE 5% 100ML 100 ML IV SCH (15:00)
[2021-12-28] MEDS ORDERED: SODIUM CHLORIDE 0.9% 500ML 500 ML IV ONE ×2 (15:00)
[2021-12-28] MEDS ORDERED: PIPERACILLIN/TAZOBACTAM 3.375 GM in SODIUM CHLORIDE 0.9% 50ML 50 ML IV ONE (15:00)
[2021-12-28 15:04] LABS: CREATINE KINASE MB 5.8 ng/mL (0-5.0)
[2021-12-28 15:05] LABS: B-TYPE NATRIURETIC PEPTIDE2 313.6 pg/mL (0-100)
[2021-12-28 15:12] LABS: CLARITY,URINE HAZY (CLEAR); COLOR,URINE YELLOW (YELLOW); LEUKOCYTE ESTERASE ,URINE NEGATIVE (NEGATIVE); NITRITE,URINE NEGATIVE (NEGATIVE); PROTEIN,URINE DIPSTICK NEGATIVE (NEGATIVE)
[2021-12-28 15:13] LABS: AMPHETAMINES SCREEN,URINE NEGATIVE (NEGATIVE); BENZODIAZEPINES SCREEN,URINE NEGATIVE (NEGATIVE); KETONES,URINE NEGATIVE (NEGATIVE); PHENCYCLIDINE SCREEN,URINE NEGATIVE (NEGATIVE); URINE UROBILINOGEN 0.2 mg/dL (0.2 - 1)
[2021-12-28] MEDS ORDERED: ONDANSETRON HCL INJ 2MG/ML 2ML 2 MG/ML VIAL IV PRN (15:15)
[2021-12-28 15:16] LABS: BACTERIA,URINE FEW /HPF; EPITHELIAL CELLS,URINE FEW /LPF; RBC,URINE 0-5 /HPF (0-5); WBC,URINE (MAN) 0-5 /HPF (0-5)
[2021-12-28 15:20] LABS: THYROID STIMULATING HORMONE 0.387 uIU/mL (0.350-4.940)
[2021-12-28] MEDS ORDERED: DIGOXIN INJ 0.25 MG/ML 2 ML AMP IV ONE ×3 (15:30→21:45)
[2021-12-28] MEDS ORDERED: AMIODARONE 900MG 500 ML IV ONE (15:30)
[2021-12-28] MEDS: ENOXAPARIN SODIUM INJ 100 MG/ML SYR SC SCH (15:35)
[2021-12-28] MEDS ORDERED: DIGOXIN INJ 0.25 MG/ML 2 ML AMP ONE (16:15)
[2021-12-28] MEDS ORDERED: Vancomycin IV 1 GM VIAL ONE (17:58)
[2021-12-28] MEDS ORDERED: SODIUM CHLORIDE 0.9% 250ML 250 ML ONE (17:59)
[2021-12-28 18:04] VITALS: BP 137/114
[2021-12-28 18:18] VITALS: BP 137/114
[2021-12-28] MEDS ORDERED: METOPROLOL TARTRATE INJ 1 MG/ML VIAL IV PRN (18:30)
[2021-12-28 21:00] VITALS: BP 126/70
[2021-12-28 23:00] VITALS: BP 112/71
[2021-12-29] VITALS (7 sets, daily range): BP systolic 97–130; BP diastolic 62–85
[2021-12-29] MEDS: METOPROLOL TARTRATE 25 MG TAB PO SCH ×5 (01:01→18:32)
[2021-12-29] MEDS: ENOXAPARIN SODIUM INJ 100 MG/ML SYR SC SCH ×2 (03:15→16:44)
[2021-12-29 05:19] LABS: BASOPHILS # (AUTO) 0.1 (0.0-0.1); BASOPHILS % 0.7 % (0.0-1.0); EOSINOPHILS # (AUTO) 0.4 (0.0-0.4); EOSINOPHILS % 4.7 % (0.0-6.0); HEMATOCRIT 45.9 % (38.2-49.6); HEMOGLOBIN 15.6 g/dL (14.0-18.0); LYMPHOCYTES # (AUTO) 3.1 (1.0-3.2); LYMPHOCYTES % 34.7 % (18.0-39.1); MEAN CORPUSCULAR HEMOGLOBIN 30.1 pg (28-32); MEAN CORPUSCULAR VOLUME 88.4 fL (81-99); MONOCYTES # (AUTO) 0.7 (0.2-0.8); MONOCYTES % 7.4 % (4.4-11.3); NEUTROPHILS # (AUTO) 4.7 (2.1-6.9); NEUTROPHILS % 52.3 % (38.7-80.0); PLATELET COUNT 203 x10e3/uL (140-360); RED BLOOD COUNT 5.19 x10e6/uL (4.3-5.7); RED CELL DISTRIBUTION WIDTH 12.5 % (11.7-14.4)
[2021-12-29 06:25] LABS: ALBUMIN 3.5 g/dL (3.5-5.0); ALBUMIN/GLOBULIN RATIO 1.3 (0.8-2.0); CALCIUM 8.7 mg/dL (8.4-10.2); CHOL/HDL RATIO 3.9 (3.9-4.7); CREATININE, SERUM 0.77 mg/dL (0.72-1.25)
[2021-12-29] MEDS: FUROSEMIDE INJ 10 MG/ML 4 ML VIAL IV SCH ×2 (07:54→16:44)
[2021-12-29] MEDS ORDERED: MAGNESIUM SULFATE 2GM/50ML IV ONE (09:15)
[2021-12-29] MEDS ORDERED: MAGNESIUM SULFATE 2GM/50ML 50 ML IV ONE (10:00)
[2021-12-29] MEDS: PIPERACILLIN/TAZOBACTAM 3.375 GM in SODIUM CHLORIDE 0.9% 50ML 50 ML IV SCH ×3 (10:35→22:37)
[2021-12-29 11:09] LABS: CREATINE KINASE MB 4.5 ng/mL (0-5.0)
[2021-12-29] MEDS ORDERED: LIDOCAINE HCL 2% LOCAL 20 ML VIAL INJ ONE (11:45)
[2021-12-29] MEDS: AMIODARONE 900MG 500 ML IV SCH (12:41)
[2021-12-29 17:04] LABS: CREATINE KINASE MB 4.4 ng/mL (0-5.0)
[2021-12-29] MEDS: Morphine 2mg Syringe 2 MG/ML SYR IV PRN (22:53)
[2021-12-30] VITALS (7 sets, daily range): BP systolic 102–130; BP diastolic 66–86
[2021-12-30] MEDS: METOPROLOL TARTRATE 25 MG TAB PO SCH ×5 (00:19→23:18)
[2021-12-30] MEDS: PIPERACILLIN/TAZOBACTAM 3.375 GM in SODIUM CHLORIDE 0.9% 50ML 50 ML IV SCH (04:45)
[2021-12-30] MEDS: ENOXAPARIN SODIUM INJ 100 MG/ML SYR SC SCH (04:45)
[2021-12-30 05:02] LABS: BASOPHILS # (AUTO) 0.1 (0.0-0.1); BASOPHILS % 0.5 % (0.0-1.0); EOSINOPHILS # (AUTO) 0.3 (0.0-0.4); EOSINOPHILS % 2.3 % (0.0-6.0); HEMATOCRIT 50.7 % (38.2-49.6); HEMOGLOBIN 17.2 g/dL (14.0-18.0); LYMPHOCYTES # (AUTO) 3.5 (1.0-3.2); LYMPHOCYTES % 28.9 % (18.0-39.1); MEAN CORPUSCULAR HEMOGLOBIN 30.3 pg (28-32); MEAN CORPUSCULAR HGB CONC 33.9 g/dL (31-35); MEAN CORPUSCULAR VOLUME 89.3 fL (81-99); MONOCYTES # (AUTO) 0.9 (0.2-0.8); MONOCYTES % 7.3 % (4.4-11.3); NEUTROPHILS # (AUTO) 7.3 (2.1-6.9); NEUTROPHILS % 60.7 % (38.7-80.0); PLATELET COUNT 221 x10e3/uL (140-360); RED BLOOD COUNT 5.68 x10e6/uL (4.3-5.7); RED CELL DISTRIBUTION WIDTH 12.6 % (11.7-14.4)
[2021-12-30 05:42] LABS: ANION GAP 16.7 mmol/L (8-16); CALCIUM 9.3 mg/dL (8.4-10.2); CREATININE, SERUM 0.8 mg/dL (0.72-1.25); POTASSIUM 3.7 mmol/L (3.5-5.1)
[2021-12-30] MEDS: Morphine 2mg Syringe 2 MG/ML SYR IV PRN ×3 (07:32→23:15)
[2021-12-30] MEDS: FUROSEMIDE 40 MG TAB PO SCH (11:52)
[2021-12-30] MEDS: VALSARTAN/SACUBITRIL 24MG/26MG 1 EA TAB PO SCH (11:52)
[2021-12-30] MEDS: AMIODARONE 900MG 500 ML IV SCH (12:52)
[2021-12-30] MEDS: CEPHALEXIN 500 MG CAP PO SCH ×2 (14:03→22:04)
[2021-12-30] MEDS: APIXABAN 5 MG TABLET PO SCH (17:08)
[2021-12-31] VITALS (8 sets, daily range): BP systolic 99–122; BP diastolic 63–90
[2021-12-31] MEDS: CEPHALEXIN 500 MG CAP PO SCH ×3 (05:21→22:10)
[2021-12-31] MEDS: METOPROLOL TARTRATE 25 MG TAB PO SCH ×3 (05:22→18:40)
[2021-12-31] MEDS: APIXABAN 5 MG TABLET PO SCH ×2 (08:56→16:20)
[2021-12-31] MEDS: FUROSEMIDE 40 MG TAB PO SCH ×2 (08:56→12:59)
[2021-12-31] MEDS: VALSARTAN/SACUBITRIL 24MG/26MG 1 EA TAB PO SCH (08:56)
[2021-12-31] MEDS: Morphine 2mg Syringe 2 MG/ML SYR IV PRN ×2 (08:57→20:23)
[2021-12-31] MEDS ORDERED: ONDANSETRON HCL 4 MG ORAL DISINTEGRATING TAB PO PRN (09:30)
[2021-12-31] MEDS ORDERED: DIGOXIN INJ 0.25 MG/ML 2 ML AMP IV ONE (15:45)
[2021-12-31] MEDS: GABAPENTIN 100 MG CAP PO SCH (16:20)
[2021-12-31] MEDS: AMIODARONE HCL 200 MG TAB PO SCH (16:20)
[2021-12-31] MEDS: MELATONIN 5 MG TABLET PO PRN (22:10)
[2022-01-01] VITALS (11 sets, daily range): BP systolic 90–125; BP diastolic 51–74
[2022-01-01] MEDS: METOPROLOL TARTRATE 25 MG TAB PO SCH ×3 (00:49→12:45)
[2022-01-01 05:36] LABS: BASOPHILS # (AUTO) 0.1 (0.0-0.1); BASOPHILS % 0.7 % (0.0-1.0); EOSINOPHILS # (AUTO) 0.3 (0.0-0.4); EOSINOPHILS % 2.4 % (0.0-6.0); HEMATOCRIT 51.9 % (38.2-49.6); HEMOGLOBIN 17.9 g/dL (14.0-18.0); LYMPHOCYTES % 38.7 % (18.0-39.1); MEAN CORPUSCULAR HEMOGLOBIN 30.2 pg (28-32); MEAN CORPUSCULAR HGB CONC 34.5 g/dL (31-35); MEAN CORPUSCULAR VOLUME 87.5 fL (81-99); MONOCYTES % 9.4 % (4.4-11.3); NEUTROPHILS % 48.4 % (38.7-80.0); PLATELET COUNT 259 x10e3/uL (140-360); RED BLOOD COUNT 5.93 x10e6/uL (4.3-5.7); RED CELL DISTRIBUTION WIDTH 12.5 % (11.7-14.4)
[2022-01-01 06:09] LABS: CALCIUM 9.7 mg/dL (8.4-10.2); CREATININE, SERUM 1.06 mg/dL (0.72-1.25)
[2022-01-01] MEDS: CEPHALEXIN 500 MG CAP PO SCH ×3 (06:16→21:52)
[2022-01-01] MEDS: FUROSEMIDE 40 MG TAB PO SCH ×2 (09:35→12:44)
[2022-01-01] MEDS: OMEPRAZOLE 20 MG CAP PO SCH (09:36)
[2022-01-01] MEDS: AMIODARONE HCL 200 MG TAB PO SCH ×2 (09:36→16:59)
[2022-01-01] MEDS: APIXABAN 5 MG TABLET PO SCH ×2 (09:36→16:59)
[2022-01-01] MEDS: DIGOXIN 0.125 MG TAB PO SCH (09:36)
[2022-01-01] MEDS: VALSARTAN/SACUBITRIL 24MG/26MG 1 EA TAB PO SCH (09:36)
[2022-01-01] MEDS: GABAPENTIN 100 MG CAP PO SCH ×2 (09:36→16:59)
[2022-01-01] MEDS: Morphine 2mg Syringe 2 MG/ML SYR IV PRN ×3 (11:50→23:51)
[2022-01-01] MEDS: MELATONIN 5 MG TABLET PO PRN (22:13)
[2022-01-02] VITALS (8 sets, daily range): BP systolic 73–118; BP diastolic 52–83
[2022-01-02] MEDS: CEPHALEXIN 500 MG CAP PO SCH ×3 (06:10→21:39)
[2022-01-02] MEDS: Morphine 2mg Syringe 2 MG/ML SYR IV PRN ×4 (06:55→22:50)
[2022-01-02] MEDS: FUROSEMIDE 40 MG TAB PO SCH ×3 (08:00→15:17)
[2022-01-02] MEDS: METOPROLOL SUCCINATE 50 MG TAB XL PO SCH ×2 (09:00→15:15)
[2022-01-02] MEDS: APIXABAN 5 MG TABLET PO SCH ×2 (09:00→15:16)
[2022-01-02] MEDS: DIGOXIN 0.125 MG TAB PO SCH (09:00)
[2022-01-02] MEDS: VALSARTAN/SACUBITRIL 24MG/26MG 1 EA TAB PO SCH ×2 (09:00→15:16)
[2022-01-02] MEDS: GABAPENTIN 100 MG CAP PO SCH ×2 (09:00→15:16)
[2022-01-02] MEDS: OMEPRAZOLE 20 MG CAP PO SCH ×2 (09:00→15:15)
[2022-01-02] MEDS: AMIODARONE HCL 200 MG TAB PO SCH ×2 (09:00→15:17)
[2022-01-02] MEDS ORDERED: BENZOCAINE/TETRACAINE/BUTAMBEN AERO SPRAY 56 GM CAN ONE (09:39)
[2022-01-02] MEDS ORDERED: DEXAMETHASONE SOD PHOS INJ 4 MG/ML SDV ONE (12:15)
[2022-01-02] MEDS ORDERED: PROPOFOL IV EMULSION 10 MG/ML 20 ML VIAL ONE (12:15)
[2022-01-02] MEDS ORDERED: POVIDONE IODINE 0.05% 0.05 % ML PO ONE (12:15)
[2022-01-02] MEDS ORDERED: LIDOCAINE HCL 2% LOCAL INJ 5 ML SDV VIAL INJ ONE (12:15)
[2022-01-02] MEDS ORDERED: MIDAZOLAM HCL 2 MG/2 ML VIAL ONE (12:59)
[2022-01-02] MEDS ORDERED: FENTANYL CITRATE/PF 100MCG/2 ML INJ ONE (12:59)
[2022-01-02] MEDS: MELATONIN 5 MG TABLET PO PRN (21:39)
[2022-01-03] VITALS (9 sets, daily range): BP systolic 80–121; BP diastolic 58–66
[2022-01-03] MEDS: CEPHALEXIN 500 MG CAP PO SCH ×2 (05:54→16:48)
[2022-01-03] MEDS: Morphine 2mg Syringe 2 MG/ML SYR IV PRN (06:24)
[2022-01-03] MEDS ORDERED: METOPROLOL SUCCINATE 50 MG TAB XL PO SCH (09:00)
[2022-01-03] MEDS: VALSARTAN/SACUBITRIL 24MG/26MG 1 EA TAB PO SCH (09:34)
[2022-01-03] MEDS: OMEPRAZOLE 20 MG CAP PO SCH (09:34)
[2022-01-03] MEDS: GABAPENTIN 100 MG CAP PO SCH ×2 (09:34→16:48)
[2022-01-03] MEDS: AMIODARONE HCL 200 MG TAB PO SCH ×2 (09:34→16:48)
[2022-01-03] MEDS: APIXABAN 5 MG TABLET PO SCH ×2 (09:34→16:48)
[2022-01-03] MEDS: FUROSEMIDE 40 MG TAB PO SCH ×2 (09:34→12:00)
== END 2022-01-03 17:00 | disposition home or self-care (01) | DRG 579 ==
LOC: ER 14:16 → ERHOLD 15:15 → IMCU 17:38
PROVIDERS: ADMIT Internal Medicine; ATTEND Internal Medicine
PROC: 0JCP0ZZ Extirpation of Matter from Left Lower Leg Subcutaneous Tissue and Fascia, Open Approach (ICD-10-PCS; principal; 2021-12-29)
DX: S80.12XA Contusion of left lower leg, initial encounter (principal); I50.23 Acute on chronic systolic (congestive) heart failure; I48.91 Unspecified atrial fibrillation; I11.0 Hypertensive heart disease with heart failure; F90.9 Attention-deficit hyperactivity disorder, unspecified type; G47.33 Obstructive sleep apnea (adult) (pediatric); E78.5 Hyperlipidemia, unspecified; Z88.8 Allergy status to other drugs, medicaments and biological substances; Z20.822 Contact with and (suspected) exposure to COVID-19
CPT/HCPCS: 36415; 71045; 80048; 80053; 80061; 80307; 81001; 82550; 82553; 83605; 83735; 83880; 84443; 84484; 85025; 85610; 85730; 87040; 87086; 93005; 93306; 93307; 93312; 93325; 93970; 94799; 99251; 99284; J1100; J1160; J1650; J1940; J2001; J2250; J2270; J2543; J3010; J3370; J3475; J7040; J7050; U0002